=== PATIENT | male | born 1995 | race African-American/Black ===

== ENCOUNTER 2017-06-22 19:24 | Emergency (ER) | payer BC, OTHER ==
[2017-06-22] MEDS ORDERED: Ibuprofen 600 MG Tab PO ONE (20:05)
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
== END 2017-06-22 20:54 | disposition home or self-care (01) ==
LOC: MW.ED 19:24
DX: M79.671 Pain in right foot (principal); G89.29 Other chronic pain; F17.210 Nicotine dependence, cigarettes, uncomplicated
CPT/HCPCS: 73620; 99283; A9270

== ENCOUNTER 2017-07-06 19:07 | Emergency (ER) | payer BC, OTHER ==
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
[2017-07-06] MEDS ORDERED: Diphtheria,Pertussis(Acell),Tetanus Vaccine 0.5 ML Syringe IM ONE (19:20)
[2017-07-06] MEDS ORDERED: Ketorolac 60 MG/2 ML SDV IM ONE (19:22)
== END 2017-07-06 19:55 | disposition home or self-care (01) ==
LOC: MW.ED 19:07
DX: T20.00XA Burn of unspecified degree of head, face, and neck, unspecified site, initial encounter (principal); F17.210 Nicotine dependence, cigarettes, uncomplicated; Z23 Encounter for immunization; X16.XXXA Contact with hot heating appliances, radiators and pipes, initial encounter
CPT/HCPCS: 90471; 90715; 96372; 99283; J1885

== ENCOUNTER 2019-06-12 15:07 | Emergency (ER) | payer BC, OTHER ==
[2019-06-12] MEDS ORDERED: Lidocaine 1% 10 ML MDV INJECT ONE (15:54)
--- NOTE | 2019-06-12 16:36 | EDM.PDOC ---
ED HPI GENERAL MEDICAL PROBLEM - General Chief Complaint: Laceration Stated Complaint: LACERATION TO FINGER Time Seen by Provider: 06/12/19 15:14 Source of Information: Reports: Patient History Limitations: Reports: No Limitations - History of Present Illness INITIAL COMMENTS - FREE TEXT/NARRATIVE: Dense reporting laceration. The patient states that just prior to arrival he was cutting some pryor when the knife slipped lacerating his thumb and index finger. Tetanus vaccine 18 months ago. Left Finger-Thumb Pain Score (Numeric/FACES): 8 - Related Data Allergies Allergy/AdvReac Type Severity Reaction Status Date / Time No Known Allergies Allergy Verified 06/22/17 19:55 Home Meds: Home Meds . [No Known Home Meds] 06/22/17 [History] Past Medical History - Past Health History Medical/Surgical History: Denies Medical/Surgical History HEENT History: Reports: None Cardiovascular History: Reports: None Respiratory History: Reports: None Gastrointestinal History: Reports: None Genitourinary History: Reports: None Musculoskeletal History: Reports: None Neurological History: Reports: None Psychiatric History: Reports: None Endocrine/Metabolic History: Reports: None Hematologic History: Reports: None Dermatologic History: Reports: None - Infectious Disease History Infectious Disease History: Reports: None - Past Surgical History Male Surgical History: Reports: None Social & Family History - Family History Family Medical History: Noncontributory - Tobacco Use Smoking Status *Q: Current Every Day Smoker Years of Tobacco use: 1 Packs/Tins Daily: 8 - Caffeine Use Caffeine Use: Reports: Coffee - Recreational Drug Use Recreational Drug Use: Yes Recreational Drug Type: Reports: Marijuana/Hashish Recreational Drug Use Frequency: Daily ED ROS GENERAL - Review of Systems Review Of Systems: Comprehensive ROS is negative, except as noted in HPI. ED EXAM, SKIN/RASH Exam: See Below Exam Limited By: No Limitations General Appearance: Alert, No Apparent Distress Ears: Normal External Exam Nose: Normal Inspection Throat/Mouth: Normal Inspection Head: Atraumatic, Normocephalic Neck: Normal Inspection Respiratory/Chest: No Respiratory Distress Cardiovascular: Normal Peripheral Pulses Skin: Other (Left thumb and forefinger distal tip lacerations) ED SKIN PROCEDURES - Laceration/Wound Repair Left Digit - 1st (Thumb) Local Anesthetic Volume: 2cc Skin Prep: Chlorhexidine (Hibiciens) Closed with: Sutures Lac/Wound length In cm: 2 Suture Size: 4-0 # of Sutures: 5 Suture Type: Nylon Course - Vital Signs Last Recorded V/S: Last Vital Signs Temp 36.3 C 06/12/19 15:42 Pulse 65 06/12/19 15:42 Resp 16 06/12/19 15:42 BP 138/76 06/12/19 15:42 Pulse Ox 100 06/12/19 15:42 - Orders/Labs/Meds Meds: Medications Discontinued Medications Generic Name Dose Route Start Last Admin Trade Name Jerad PRN Reason Stop Dose Admin Lidocaine HCl 10 ml 06/12/19 15:54 Xylocaine 1% INJECT 06/12/19 15:55 ONETIME ONE Lidocaine HCl Confirm 06/12/19 16:00 Xylocaine-Mpf 1% Administered 06/12/19 16:01 Dose 5 ml .ROUTE .STK-MED ONE Departure - Departure Time of Disposition: 01:00 Disposition: Home, Self-Care 01 Condition: Good Clinical Impression: Laceration - Discharge Information Referrals: PCP,None [Primary Care Provider] - [facility] [Outside] [facility] [Outside] Additional Instructions: The following information is given to patients seen in the emergency department who are being discharged to home. This information is to outline your options for follow-up care. We provide all patients seen in our emergency department with a follow-up referral. The need for follow-up, as well as the timing and circumstances, are variable depending upon the specifics of your emergency department visit. If you don't have a primary care physician on staff, we will provide you with a referral. We always advise you to contact your personal physician following an emergency department visit to inform them of the circumstance of the visit and for follow-up with them and/or the need for any referrals to a consulting specialist. The emergency department will also refer you to a specialist when appropriate. This referral assures that you have the opportunity for follow-up care with a specialist. All of these measure are taken in an effort to provide you with optimal care, which includes your follow-up. Under all circumstances we always encourage you to contact your private physician who remains a resource for coordinating your care. When calling for follow-up care, please make the office aware that this follow-up is from your recent emergency room visit. If for any reason you are refused follow-up, please contact the [facility] Emergency Department at and asked to speak to the emergency department charge nurse. 1. Wound clean and dry. Watch for signs of infection: Redness, swelling, purulent drainage report promptly 2. Suture removal 10 days. Return to clinic, urgent care or ER Sepsis Event Note - Evaluation Sepsis Screening Result: No Definite Risk - Focused Exam Vital Signs: Vital Signs Temp Pulse Resp BP Pulse Ox 06/12/19 15:42 36.3 C 65 16 138/76 100 Date Exam was Performed: 06/12/19 Time Exam was Performed: 16:30
== END 2019-06-12 17:16 | disposition home or self-care (01) ==
LOC: MW.ED 15:07
DX: S61.012A Laceration without foreign body of left thumb without damage to nail, initial encounter (principal); F17.210 Nicotine dependence, cigarettes, uncomplicated; W26.9XXA Contact with unspecified sharp object(s), initial encounter; Y93.G1 Activity, food preparation and clean up
CPT/HCPCS: 12001; 99282